=== PATIENT | male | born 1960 | race Caucasian/White ===

== ENCOUNTER 2021-09-17 06:13 | Day surgery (SDC) | payer BC ==
[2021-09-13 14:04] VITALS: BMI 29.0
[2021-09-17] MEDS ORDERED: SODIUM CHLORIDE 0.9% P/F 10 ML VIAL IJ ONE (07:12)
[2021-09-17] MEDS ORDERED: PROPOFOL 20 ML ONE ×2 (07:12)
[2021-09-17] MEDS ORDERED: ONDANSETRON 4 MG/2 ML VIAL ONE ×2 (07:12→10:36)
[2021-09-17] MEDS ORDERED: LIDOCAINE HCL/PF 2% SDV 5ML VIAL ONE ×2 (07:12→10:38)
[2021-09-17] MEDS ORDERED: SUCCINYLCHOLINE CHLORIDE 200 MG/10 ML SYRINGE ONE (07:13)
[2021-09-17] MEDS ORDERED: MIDAZOLAM HCL 2 MG/2 ML SINGLE DOSE VIAL ONE (07:13)
[2021-09-17] MEDS ORDERED: LIDOCAINE 1%/EPI 1:100000 (20 ML MULTI DOSE VIAL) ONE ×2 (07:14→08:05)
[2021-09-17] MEDS ORDERED: TETRACAINE 0.5% OPHTH SOLN 2 ML BOTTLE ONE (07:14)
[2021-09-17] MEDS ORDERED: POVIDONE-IODINE 5% OPHTHALMIC PREP 30 ML SOLUTION ONE (07:14)
[2021-09-17] MEDS ORDERED: BUPIVACAINE HCL 50 ML ONE (07:14)
[2021-09-17] MEDS ORDERED: ERYTHROMYCIN 0.5% OPHTHALMIC OINTMENT 3.5 GM TUBE ONE (07:14)
[2021-09-17] MEDS ORDERED: ceFAZolin SODIUM 1 GM VIAL ONE ×2 (07:22→08:06)
[2021-09-17] MEDS ORDERED: ONDANSETRON 4 MG/2 ML VIAL IVPUSH PRN (07:35)
[2021-09-17] MEDS ORDERED: oxyCODONE HCL 5 MG TABLET PO PRN ×2 (07:35)
[2021-09-17] MEDS ORDERED: LACTATED RINGERS SOLUTION 1,000 ML IV SCH (07:45)
[2021-09-17] MEDS ORDERED: DEXAMETHASONE SOD PHOSPHATE 4 MG/1 ML VIAL ONE (08:03)
[2021-09-17] MEDS ORDERED: oxyCODONE HCL 5 MG TABLET ONE (11:08)
[2021-09-17] MEDS ORDERED: oxyCODONE HCL 5 MG TABLET PO ONE (11:10)
[2021-09-17 11:25] VITALS: TEMP 97.8
[2021-09-17 12:01] VITALS: BP 127/78; PULSE 81
== END 2021-09-17 12:10 | disposition home or self-care (01) ==
LOC: FASU 06:13
PROVIDERS: ATTEND Ophthalmology
PROC: 08RR07Z Replacement of Left Lower Eyelid with Autologous Tissue Substitute, Open Approach (ICD-10-PCS; principal; 2021-09-17 08:25)
DX: H02.115 Cicatricial ectropion of left lower eyelid (principal)
CPT/HCPCS: 94760